=== PATIENT | female | born 1985 | race African-American/Black ===

== ENCOUNTER 2020-10-31 23:35 | Emergency (ER) | payer OTHER ==
[2020-10-31 23:56] VITALS: BP 124/86; PULSE 96; TEMP 98.7; BMI 17.1
[2020-11-01] MEDS ORDERED: SODIUM CHLORIDE 0.9% 500 ML INFUS.BAG IV ONE (00:16)
[2020-11-01 00:59] LABS: BASO % 1.5 % (0-2.0); EOS % 1.8 % (0-4.5); HEMATOCRIT 38.4 % (32.4-45.2); HEMOGLOBIN 13.2 GM/dL (10.7-15.3); LYMPH % 35.8 % (8-40); MCH 35.5 pg (25.7-33.7); MCHC 34.5 g/dl (32.0-36.0); MEAN CELL VOLUME 102.8 fl (80-96); MEAN PLT VOLUME 10.8 fl (7.5-11.1); NEUT % 47.9 % (42.8-82.8); PLATELET COUNT 209 K/MM3 (134-434); RBC 3.73 M/mm3 (3.60-5.2); RDW 11.7 % (11.6-15.6); WHITE BLOOD COUNT 6.2 K/mm3 (4.0-10.0)
[2020-11-01 01:21] LABS: POTASSIUM 3.4 mmol/L (3.5-5.1)
[2020-11-01 01:23] LABS: ALBUMIN 4.4 g/dl (3.4-5.0); CALCIUM 9.1 mg/dL (8.5-10.1)
[2020-11-01 01:24] LABS: BLOOD UREA NITROGEN 18.4 mg/dL (7-18)
[2020-11-01 01:27] LABS: CREATININE 0.9 mg/dL (0.55-1.3)
[2020-11-01 01:28] LABS: BILIRUBIN,TOTAL 0.6 mg/dL (0.2-1); TOT PROT 7.8 g/dl (6.4-8.2)
[2020-11-01] MEDS ORDERED: ZOLPIDEM TARTRATE 5 MG TABLET PO ONE (02:11)
[2020-11-01] MEDS ORDERED: ZOLPIDEM TARTRATE 5 MG TABLET ONE (02:18)
[2020-11-01 02:45] LABS: HCG,QUALITATIVE URINE Negative
[2020-11-01 02:46] LABS: EPI CELLS >36 /uL (0-25.1); HYALINE CASTS 2 /uL (0-3.1); PH,URINE 5.5 (5.0-8.0); URINE APPEARANCE CLOUDY; URINE BACTERIA 620 /uL (0-1359); URINE BILIRUBIN NEGATIVE (NEGATIVE); URINE COLOR DK YELLOW; URINE GLUCOSE (UA) NEGATIVE (NEGATIVE); URINE KETONE TRACE (NEGATIVE); URINE LEUK ESTERASE TRACE (NEGATIVE); URINE NITRITE NEGATIVE (NEGATIVE); URINE PROTEIN 1+ (NEGATIVE); URINE WBC 65 /uL (0-25.8)
[2020-11-01 02:53] LABS: COCAINE, UR NEGATIVE ng/ml (CUTOFF=300); PHENCYCLIDINE,URINE NEGATIVE ng/ml (CUTOFF=25); URINE BENZODIAZEPINES NEGATIVE ng/ml (CUTOFF=200)
[2020-11-01 02:54] LABS: URINE AMPHETAMINES NEGATIVE ng/ml (CUTOFF=500)
[2020-11-01 03:06] LABS: METHADONE, UR NEGATIVE ng/ml (CUTOFF=300); OPIATES, URI NEGATIVE ng/ml (CUTOFF=300); URINE BARBITURATES NEGATIVE ng/ml (CUTOFF=200)
[2020-11-01 04:19] LABS: URINE RBC 915 /uL (0-23.9)
== END 2020-11-01 02:37 | disposition home or self-care (01) ==
LOC: JER 23:35
DX: R44.3 Hallucinations, unspecified (principal)
CPT/HCPCS: 36415; 80053; 80307; 81003; 84443; 84703; 85025; 99285-25